=== PATIENT | female | born 1965 | race Caucasian/White ===

== ENCOUNTER 2020-10-29 14:20 | Outpatient (REF) | payer OTHER, SELFPAY ==
--- NOTE | ~2020-10-29 | MM_ITS ---
EXAMINATION: MM DIAGNOSTIC DIGITAL BREAST TOMOSYNTHESIS, BILATERAL US DIAGNOSTIC ULTRASOUND BREAST, RIGHT CLINICAL INFORMATION: Due for yearly. No known family history breast cancer. Also follow-up probable benign mildly complicated cyst 9:00 right breast. The lifetime risk of breast cancer based on the Tyrer-Cuzick Model is 10%. COMPARISON: Mammography: 10/27/2019, 04/25/2019, 10/18/2018, 09/30/2018 (baseline, BI-RADS 0), targeted right breast ultrasound 10/18/2018, 04/25/2019, 10/27/2019. TECHNIQUE: Digital breast tomosynthesis is performed in both the craniocaudal and mediolateral oblique views along with computer-aided detection (CAD). Synthesized 2D images are generated from the tomosynthesis. Ultrasound right breast is targeted to the outer quadrant. Grayscale imaging and color Doppler are performed without and with harmonics. FINDINGS: There are scattered areas of fibroglandular density (ACR BI-RADS breast composition Category b). Parenchymal pattern is similar to prior studies. There is no developing density or interval mass or architectural abnormality. No abnormal calcifications. There is a small stable nodule anterior 11:00 position similar to prior exams. The cyst 9:00 position is not well visualized on mammography. The axilla and skin contours are unremarkable. Ultrasound right breast demonstrates subcentimeter hypoechoic nodule/mildly complicated cyst 9:00 position 9 cm from nipple with fine avascular internal septation. Overall dimensions are approximately 9 x 7 x 4 mm. Original dimensions similar, 9 x 5 mm on ultrasound 10/18/2018. Finding is now considered benign. There is no interval new cystic or solid mass in the targeted area. Results are discussed with the patient at time of visit. MM/MM tomosynthesis diagnostic BI IMPRESSION: 1. No mammographic evidence of malignancy. No significant changes from prior exams. 2. Ultrasound shows stable subcentimeter nodule 9:00 position, similar to prior exams and now considered benign. ASSESSMENT: BI-RADS 2: Benign RECOMMENDATION: Routine annual mammography screening. This patient's information was entered into a reminder system with a target due date for their next mammogram.
== END 2020-10-29 14:21 | disposition home or self-care (01) ==
LOC: HO.MAMMO 14:20
PROVIDERS: PCP Hospitalist; Visit Provider Hospitalist
DX: R92.2 Inconclusive mammogram (principal)
CPT/HCPCS: 76642; 77062; 77066

== ENCOUNTER 2023-09-03 14:14 | Outpatient (AMB) | payer OTHER, SELFPAY ==
--- NOTE | 2023-09-03 14:26 | A.OFFPC_ITS ---
Vital Signs 09/03/23 14:28 Height 5 ft 4 in Weight 207 lb BMI 35.5 BP 118/70 Blood Pressure Location Lt brachial Position Sitting Pulse 65 Pulse Source Pulse Oximeter Pulse Oximetry (%) 97 Oxygen Delivery Method Room Air Intake Visit Reasons: [facility] formerly [facility] Intake Note: Patient is here as a transfer of care from [facility]. Allergies aspirin Allergy (Severe, Verified 09/03/23 14:32) Throat swells up penicillin G Allergy (Intermediate, Verified 09/03/23 14:32) hives, measles size Tobacco use date assessed: 09/03/23 Dental Screening Dental Screen Date: 09/03/23 Did you have a dental visit in the last 12 months?: Yes Did you have a dental problem in the last 6 months where you did not have access to dental care?: No Was dental information given to patient?: Patient has dentist HPI [facility], [facility] HPI Details New patient/Transfer of Care Prior PCP:?SV Last office visit/CPE: Acute issue(s): Est Care PMHx:??Depression,?hypertension, Chronic intermittent neuralgia pain, Plaque Psoriasis SurgHx:R index finger I&D FHx: Dad: Diabetes. Mom: HTN, Dementia. GM: Uterine CA. GF: Lung CA SocHx: Quit cigs 2006. EtOH: 1-2 dr 2-3 x a week. MJ daily. No other drugs PFSH Medical History Abrasion of right index finger with infection Family History Father Diabetes Mother High blood pressure Advanced dementia Paternal Grandfather Lung cancer Maternal Grandmother Uterine cancer Social History (Updated 09/03/23 @ 14:39 by Ella Grace CMA) Household Members: Spouse Housing: House Patient Tobacco Use Status: Former Tobacco user Years Smoked: Quit 2016. e-Cigarette/Vaping Use: Never Used service: Yes Current occupational status: employed Cognitive needs: No Hearing needs: No Vision needs: Yes Questionnaire PHQ-9 Over the last 2 weeks, how often have you been bothered by any of the following problems? 1. Little interest or pleasure in doing things: several days 2. Feeling down, depressed, or hopeless: several days 3. Trouble falling or staying asleep, or sleeping too much: more than half the days 4. Feeling tired or having little energy: several days 5. Poor appetite or overeating: not at all 6. Feeling bad about yourself - or that you are a failure or have let yourself or your family down: several days 7. Trouble concentrating on things, such as reading the newspaper or watching television: not at all 8. Moving or speaking so slowly that other people could have noticed. Or the opposite - being so fidgety or restless that you have been moving around a lot more than usual: not at all 9. Thoughts that you would be better off or of hurting yourself in some way: not at all Total score: 6 Depression Screening Interpretation: Positive Depression Screening Follow-up: Existing condition and In treatment Depression Screening Done: Yes [id number] - PHQ-9 Billing: Yes Source: Developed by Drs. Héctor Aguilar, Amy Reese, Alden Gleason and colleagues, with an educational ann from [employer]. AUDIT C Alcohol Use Questionnaire (AUDIT-C) 1. How often do you have a drink containing alcohol?: 2-3 times a week 2. How many drinks containing alcohol do you have on a typical day when you are drinking?: 1 or 2 3. How often do you have six or more drinks on one occasion?: Never Total Score: 3 SHRUTI-7 AMB Questionnaire SHRUTI-7 Date SHRUTI - 7 assessed: 09/03/23 Feeling nervous, anxious, or on edge: 0 = Not at all Not being able to stop or control worryin = Not at all Worrying too much about different things: 0 = Not at all Trouble relaxin = Not at all Being so restless that it is hard to sit still: 0 = Not at all Becoming easily annoyed or irritable: 0 = Not at all Feeling afraid as if something awful might happen: 0 = Not at all Total SHRUTI-7 score (0-4 normal; 5-9 mild; 10-14 moderate; 15-21 severe): 0 Source: Developed by Drs. Héctor Aguilar, Amy Reese, Alden Gleason and colleagues, with an educational ann from [employer]. SHRUTI-7 Assessment Billing SHRUTI-7 Assessment Tool: SHRUTI-7 Assessment 48631 Review of Systems Const Denies chills, Denies fatigue, Denies fever(s), Denies headache(s) and Denies weakness ENT Denies dizziness and Denies headache(s) Card Denies chest pain, Denies lightheadedness, Denies dyspnea and Denies other (Palpitations) Resp Denies cough, Denies dyspnea, Denies wheezing and Denies other ( shortness of breath) Musc Denies numbness and Denies tingling Neuro Denies dizziness, Denies headache(s), Denies numbness, Denies tingling, Denies paresthesias and Denies weakness Psych Denies anxiety and Denies depression Endo Denies fatigue Aller/Immun Denies wheezing Physical exam (Primary Care) Vital Signs: Last Vital Signs Pulse 65 09/03/23 14:28 BP 118/70 09/03/23 14:28 Pulse Ox 97 09/03/23 14:28 Oxygen Delivery Method Room Air 09/03/23 14:28 BMI result Body Mass Index 35.5 Tobacco/Smoking Status: Tobacco use Status Tobacco use date assessed 09/03/23 09/03/23 14:42 Patient Tobacco Use Status Former Tobacco user 09/03/23 14:42 e-Cigarette/Vaping Use Never Used 09/03/23 14:42 PHQ-9: PHQ-9 Score PHQ-9: Total score 6 09/03/23 14:59 Depression Screening Interpretation: Positive Depression Screening Follow-up: Existing condition and In treatment Const General: no acute distress and well developed Nutritional Appearance: well nourished Orientation/consciousness: patient oriented x3 HENMT Head: Yes normocephalic and Yes atraumatic Eyes General: appearance normal, both eyes and all related structures Pupils: Equal, round and reactive pupils present EOM: EOMs intact bilaterally Resp Effort & Inspection: normal respiratory effort Auscultation: clear to auscultation bilaterally Cardio Rate: regular rate Rhythm: regular rhythm Heart sounds: S1 normal heart sound present, S2 normal heart sound present, no gallops, no murmurs and no rubs Neuro General: patient oriented x3 and gait normal Cranial nerves: Yes Equal, round and reactive pupils present Psych Affect: normal affect Assessment and Plan Assessment & Plan (1) Hypertension, essential: Code(s): I10 - Essential (primary) hypertension Plan: Blood?pressure?is?well?controlled.??Goal?is?less?than?140/90 Continue?current?medication (2) Depression: Code(s): F32.9 - Major depressive disorder, single episode, unspecified Qualifiers: Active/Remission status: in full remission Depression Type: major depressive disorder Major depression recurrence: recurrent Qualified Code(s): F33.42 - Major depressive disorder, recurrent, in full remission Plan: Controlled?with?duloxetine Continue?current?medication (3) Neuralgia: Code(s): M79.2 - Neuralgia and neuritis, unspecified Plan: Well?controlled?with?duloxetine Continue?duloxetine? (4) Cognitive changes: Code(s): R41.89 - Other symptoms and signs involving cognitive functions and awareness Plan: Cognitive?changes?and?a?family?history?of?dementia. Referred?to[facility]?memory?clinic,?neuropsychiatry (5) Family history of dementia: Code(s): Z81.8 - Family history of other mental and behavioral disorders Plan: As?above (6) Laboratory exam ordered as part of routine general medical examination: Code(s): Z00.00 - Encounter for general adult medical examination without abnormal findings Plan: Check?labs Orders: Orders Lipid Panel Today Z00.00 - Encounter for general adult medical examination without abnormal findings Microalbumin, Random (w Creat) Today I10 - Essential (primary) hypertension Comprehensive [place]. Panel Fast Today Z00.00 - Encounter for general adult medical examination without abnormal findings TSH reflex Free T4 Today Z00.00 - Encounter for general adult medical examination without abnormal findings UA and rflx microscopic Today Z00.00 - Encounter for general adult medical examination without abnormal findings Vitamin D 25-OH Total Today E55.9 - Vitamin D deficiency, unspecified Referrals Neuropsychiatry Referral M79.2 - Neuralgia and neuritis, unspecified, R41.89 - Other symptoms and signs involving cognitive functions and awareness, Z81.8 - Family history of other mental and behavioral disorders Medications: Discontinued hydrochlorothiazide Discontinued Reason: Doctor's Order 50 mg PO DAILY 90 days 90 tabs 3RF Coding Level of Care Code Est Pt Level 4 (08835) Diagnoses Hypertension, essential I10 Recurrent major depressive disorder, in full remission F33.42 Active/Remission status: in full remission Depression Type: major depressive disorder Major depression recurrence: recurrent Neuralgia M79.2 Cognitive changes R41.89 Family history of dementia Z81.8 Laboratory exam ordered as part of routine general medical examination Z00.00 Additional Codes SHRUTI-7 Assessment Billing - SHRUTI-7 Assessment Tool: SHRUTI-7 Assessment [id number] ([id number])
[2023-09-03 14:28] VITALS: BP 118/70; PULSE 65; O2SAT 97; BMI 35.5
== END 2023-09-03 15:22 | disposition home or self-care (01) ==
PROVIDERS: PCP Hospitalist; Visit Provider Family Medicine
DX: I10 Essential (primary) hypertension (principal); F33.42 Major depressive disorder, recurrent, in full remission; M79.2 Neuralgia and neuritis, unspecified; R41.89 Other symptoms and signs involving cognitive functions and awareness; Z81.8 Family history of other mental and behavioral disorders
CPT/HCPCS: 99214

== ENCOUNTER 2024-06-02 15:17 | Outpatient (AMB) | payer OTHER, SELFPAY ==
--- NOTE | 2024-06-02 16:16 | A.OFFPC_ITS ---
Vital Signs 06/02/24 16:19 Height 5 ft 4 in Weight 224 lb 4 oz BMI 38.5 BP 132/78 Blood Pressure Location Lt brachial Position Sitting Respiration 14 Pulse 91 Pulse Source Pulse Oximeter Temp 97.8 F Temp Source Oral Pulse Oximetry (%) 97 Oxygen Delivery Method Room Air Intake Visit Reasons: Follow Up / Cancer Screening Intake Note: med refill and lung cancer screening referral for [facility] Allergies aspirin Allergy (Severe, Verified 06/02/24 16:17) Throat swells up penicillin G Allergy (Intermediate, Verified 06/02/24 16:17) hives, measles size Tobacco use date assessed: 09/03/23 Dental Screening Dental Screen Date: 09/03/23 HPI Follow Up / Cancer Screening HPI Details 58 y/o female presents to f/u chronic co nditions. She requests a lung cancer screening at [facility]. No recent labs to review. She is being followed by [place] [facility] for a foot fracture. She has a f/u with them. [facility] Medical History Abrasion of right index finger with infection Family History Father Diabetes Mother High blood pressure Advanced dementia Paternal Grandfather Lung cancer Maternal Grandmother Uterine cancer Social History (Updated 09/03/23 @ 14:39 by Ella Grace CMA) Household Members: Spouse Housing: House Patient Tobacco Use Status: Former Tobacco user Years Smoked: Quit 2016. e-Cigarette/Vaping Use: Never Used service: Yes Current occupational status: employed Cognitive needs: No Hearing needs: No Vision needs: Yes Questionnaire Thrive Questionnaire I am a: Patient What is your living situation today?: I choose not to answer this question Within the past 12 months, did the food you bought not last and you didn't have the money to get more?: I choose not to answer this question Within the past 12 months, did you worry whether your food would run out before you got money to buy more?: I choose not to answer this question Do you have trouble paying for medicines?: I choose not to answer this question Do you have trouble getting transportation to medical appointments?: I choose not to answer this question Do you have trouble paying your heating and electricity bill?: I choose not to answer this question Do you have trouble taking care of your child, family member or friend?: I choose not to answer this question Do you have trouble with day-to-day activities such as bathing, preparing meals, shopping, managing finances, etc.?: I choose not to answer this question Are you currently unemployed and looking for a job?: I choose not to answer this question Are you interested in more education?: I choose not to answer this question Please select the resources that you would like help with: None Currently or been in a relationship where the following occur: I choose not to answer THRIVE Score: 0 AUDIT C Alcohol Use Questionnaire (AUDIT-C) 1. How often do you have a drink containing alcohol?: 4 or more times a week 2. How many drinks containing alcohol do you have on a typical day when you are drinking?: 1 or 2 3. How often do you have six or more drinks on one occasion?: Less than monthly Total Score: 5 SHRUTI-7 AMB Questionnaire SHRUTI-7 Date SHRUTI - 7 assessed: 09/03/23 Feeling nervous, anxious, or on edge: 3 = Nearly every day Not being able to stop or control worryin = Nearly every day Worrying too much about different things: 3 = Nearly every day Trouble relaxin = Nearly every day Being so restless that it is hard to sit still: 1 = Several days Becoming easily annoyed or irritable: 3 = Nearly every day Feeling afraid as if something awful might happen: 3 = Nearly every day Total SHRUTI-7 score (0-4 normal; 5-9 mild; 10-14 moderate; 15-21 severe): 19 Source: Developed by Drs. Héctor Aguilar, Amy Reese, Alden Gleason and colleagues, with an educational ann from [employer]. Review of Systems Const Denies chills, Denies fatigue, Denies fever(s), Denies headache(s) and Denies we akness ENT Denies dizziness and Denies headache(s) Card Denies chest pain, Denies lightheadedness, Denies dyspnea and Denies other (Palpitations) Resp Denies cough, Denies dyspnea, Denies wheezing and Denies other ( shortness of breath) Musc Denies numbness and Denies tingling Neuro Denies dizziness, Denies headache(s), Denies numbness, Denies tingling, Denies paresthesias and Denies weakness Psych Denies anxiety and Denies depression Endo Denies fatigue Aller/Immun Denies wheezing Physical exam (Primary Care) Vital Signs: Last Vital Signs Temp 97.8 F 06/02/24 16:19 Pulse 91 06/02/24 16:19 Resp 14 06/02/24 16:19 BP 132/78 06/02/24 16:19 Pulse Ox 97 06/02/24 16:19 Oxygen Delivery Method Room Air 06/02/24 16:19 BMI result Body Mass Index 38.5 Tobacco/Smoking Status: Tobacco use Status Tobacco use date assessed 09/03/23 06/02/24 16:22 Patient Tobacco Use Status Former Tobacco user 06/02/24 16:22 e-Cigarette/Vaping Use Never Used 06/02/24 16:22 Currently or been in a relationship where the following occur: I choose not to answer Const General: no acute distress and well developed Nutritional Appearance: well nourished Orientation/consciousness: patient oriented x3 HENMT Head: Yes normocephalic and Yes atraumatic Eyes General: appearance normal, both eyes and all related structures Pupils: Equal, round and reactive pupils present EOM: EOMs intact bilaterally Resp Effort & Inspection: normal respiratory effort Auscultation: clear to auscultation bilaterally Cardio Rate: regular rate Rhythm: regular rhythm Heart sounds: S1 normal heart sound present, S2 normal heart sound present, no gallops, no murmurs and no rubs Neuro General: patient oriented x3 and gait normal Cranial nerves: Yes Equal, round and reactive pupils present Psych Affect: normal affect Coding Level of Care Code Est Pt Level 4 (08345) Diagnoses Hypertension, essential I10 Screening for lung cancer Z12.2 Foot fracture S92.909A Recurrent major depressive disorder, in full remission F33.42 Active/Remission status: in full remission Depression Type: major depressive disorder Major depression recurrence: recurrent Assessment & Plan Assessment & Plan (1) Hypertension, essential: Code(s): I10 - Essential (primary) hypertension Category: Medical Plan: Blood?pressure?is?controlled.??Goal?is?less?than?140/90 Continue?lisinopril (2) Screening for lung cancer: Code(s): Z12.2 - Encounter for screening for malignant neoplasm of respiratory organs Category: Medical Plan: Patient?quit?smoking?less?than?15?years?ago. Due?for?low-dose?CT?screen Ordered (3) Foot fracture: Code(s): S92.909A - Unspecified fracture of unspecified foot, initial encounter for closed fracture Category: Medical Plan: Right?foot?fracture?and?followed?by?[facility] (4) Depression: Code(s): F32.9 - Major depressive disorder, single episode, unspecified Category: Medical Qualifiers: Active/Remission status: in full remission Depression Type: major depressive disorder Major depression recurrence: recurrent Qualified Code(s): F33.42 - Major depressive disorder, recurrent, in full remission Plan: She?is?on?duloxetine Refilled Plan Patient?was?quite?frustrated?with?the?length?of?time?she?had?weight?today. Apologized?for?the?time Patient?felt?she?was?never?told?that?she?had?lab?work?ordered.??I?did?explain?th at?it?is?my?policy?at?every?visit?that?I?ordered?labs?to?discuss?thi s?with?each?patient. The?labs?are?still?available?in?waiting.??He?can?get?them?done?at?this?office?or ?at[facility].??She?does?not?need?an?appointment We?discussed?that?I?will?call?her?if? there?is?any?action?required?from?labs.??She?can?call?if?she?has?any?questions. I?have?asked?her?to?follow- up?in?a?few?months?to?evaluate?her?blood?pressure?and?we?can?review?her?lab?work Orders: Orders CT lung screening Today Z12.2 - Encounter for screening for malignant neoplasm of respiratory organs Medications: Refilled duloxetine 60 mg PO DAILY 90 caps 3RF 3 months lisinopril 40 mg PO DAILY 90 tabs 3RF 3 months
[2024-06-02 16:19] VITALS: BP 132/78; PULSE 91; RESP 14; TEMP 36.6; O2SAT 97; BMI 38.5
== END 2024-06-02 16:58 | disposition home or self-care (01) ==
PROVIDERS: PCP Family Medicine; Visit Provider Family Medicine
DX: I10 Essential (primary) hypertension (principal); Z12.2 Encounter for screening for malignant neoplasm of respiratory organs; S92.909A Unspecified fracture of unspecified foot, initial encounter for closed fracture; F33.42 Major depressive disorder, recurrent, in full remission

== ENCOUNTER → 2024-06-02 15:17 | Outpatient (BNVA) | payer OTHER, SELFPAY | PROVIDERS: PCP Family Medicine; Visit Provider Family Medicine | DX: I10 Essential (primary) hypertension (principal); F33.42 Major depressive disorder, recurrent, in full remission; S92.901D Unspecified fracture of right foot, subsequent encounter for fracture with routine healing | CPT/HCPCS: 99212 ==

== ENCOUNTER 2024-10-28 10:50 | Outpatient (AMB) | payer OTHER, SELFPAY ==
--- NOTE | 2024-10-28 08:00 | MHC.OFFVIS ---
Intake Visit Reasons: Former Smoker Allergies aspirin Allergy (Severe, Verified 06/02/24 16:17) Throat swells up penicillin G Allergy (Intermediate, Verified 06/02/24 16:17) hives, measles size HPI HPI Former Smoker: Details: Initial visit for this 59yo former smoker with a 40PYH. Patient started smoking at age 15 for 29 years at 1-2ppd. She quit in 01/13/2010. . Reports occasional/rare marijuana use. Denies second hand smoke exposure. Denies exposure to chemicals or substances like asbestos. . Reports history of lung cancer. Paternal Grandfather. Denies personal history of cancers. Denies chest CT in last year. . Denies recent travel outside the [place]. Denies recent respiratory illness or recent hospitalization for respiratory issues. Reports history of testing positive for COVID. Admits receiving COVID Vaccine. . Denies fever, chills, new/worsening cough, hemoptysis, hoarseness or dysphagia. Denies significant chest pain, significant dyspnea or unintentional weight loss. Patient Lung Cancer Screening Questionnaire reviewed with patient by provider. . Shared Decision Making Completed. Patient meets criteria. Discussed in detail with patient, the risk vs benefit of LDCT screening. Patient consents to proceed with scan. Discussed andencouraged continued smoking cessation. [facility] Medical History (Updated 10/28/24 @ 11:10 by Jennifer Sanchez PA-C) Depression Hypertension, essential Personal history of nicotine dependence Abrasion of right index finger with infection Surgical History (Updated 10/28/24 @ 11:04 by Jennifer Sanchez PA-C) History of hand surgery Family History (Reviewed 09/03/23 @ 14:37 by Ella Grace [facility]) Father Diabetes Mother High blood pressure Advanced dementia Paternal Grandfather Lung cancer Maternal Grandmother Uterine cancer Social History (Updated 10/28/24 @ 11:15 by Jennifer Sanchez PA-C) Household Members: Spouse Housing: House Alcohol intake: current Alcohol intake frequency: 0-2 drinks per day Alcohol type: wine Patient Tobacco Use Status: Former Tobacco user Years Smoked: (onset 15yo, 1-2ppd x 29yrs, 40pyh - quit 01/13/10) e-Cigarette/Vaping Use: Never Used service: Yes Current occupational status: employed Cognitive needs: No Hearing needs: No Vision needs: Yes Assessment & Plan Assessment & Plan (1) Personal history of nicotine dependence: Comment: (onset 15yo, 1-2ppd x 29yrs, 40pyh - quit 01/13/10) Code(s): Z87.891 - Personal history of nicotine dependence Category: Medical Plan: - SDM visit completed today in office. - Patient meets criteria for LDCT for lung cancer screening purposes and is asymptomatic. - Smoking cessation counseling offered. Patients can always call [phone]. - Will arrange for a LDCT scan of the chest for screening purposes at [facility]. - Risks, benefits, and alternatives were discussed in detail and the patient agrees to proceed. - Risks discussed include but are not limited to: radiation exposure, anxiety during testing and while awaiting results, false negatives, false positives and possibility of additional intervention such as further imaging or surgical procedures for benign disease. - Benefits are obviously detection of lung cancer at an early stage which can lead to improved outcomes. - Discussed the importance of screening program compliance with adherence to yearly LDCT scan as scheduled - or sooner interval scans for personalized screening regimen. - Discussed follow up plan. Our office will send a letter discussing results and if needed set up phone call and office visit based on CT findings. - Patient educated on results categorization and the management decisions for suspicious findings potentially found on the screening LDCT scan. Any patient with a Lung RADS score of 3 or 4 will be reviewed by a multidisciplinary team at [facility] to form a plan of action in regards to scan findings. - If further work up is warranted for a suspicious lung finding this will be followed by the Lung Cancer Screening program in conjunction with the Thoracic Surgery Department at [facility]. - A copy of the office note and LDCT will be sent to the patient's PCP - as well as documentation on any associated further plans of care. - Incidental findings on LDCT are the PCP's responsibility. These findings are indicated with an S finding on the LDCT Assessment. A note discussing the findings will be sent to the PCP who is then responsible for further management. - All questions answered.? Plan Patient is overdue for labwork. She had tried to go today as she had appointment in building today but old order . She also reports last [employer] OFFICER exam was in 1988. She was given number for [place] [facility] office. She is encouraged to set up annual PCP exam and annual [employer] POLICE OFFICER exam. Coding Level of Care Code Lung Cancer Screening G0296 Diagnoses Personal history of nicotine dependence Z87.891
== END 2024-10-28 13:18 | disposition home or self-care (01) ==
LOC: HO.HPS 10:51
PROVIDERS: PCP Family Medicine; Referring Provider Family Medicine; Visit Provider Physician Assistant Medical
DX: Z87.891 Personal history of nicotine dependence (principal)
CPT/HCPCS: G0296

== ENCOUNTER 2024-10-28 11:15 | Outpatient (REF) | payer OTHER, SELFPAY ==
--- NOTE | ~2024-10-28 | CT_ITS ---
CLINICAL HISTORY: Z87.891 - Personal history of nicotine dependence CT lung cancer screening (LDCT) Comparison: None Technique: Axial CT images of the chest using low-dose technique. Referring provider counseled the patient on shared decision-making for LDCT screening. Additional counseling was provided on smoking cessation. Effective radiation dose total: DLP 42.9 mGycm, CTDIvol 1.4 mGy. Findings: There are multiple tiny pulmonary nodules, for example a 4 mm right lower lobe nodule on image 57 and a 4 mm left upper lobe nodule on image 23. No significant emphysematous changes. Minimal apical scarring. No consolidation or pleural effusion. Coronary artery calcifications: Moderate Limited upper abdomen: Unremarkable Other: None Impression: Category 2: Benign appearance or behavior. Continue annual screening. Hashtag #[id number] ## Category 1: Normal; continue annual screening Category 2: Benign appearance or behavior, continue annual screening Category 3: Probably benign, [address] recommended Category 4A: Suspicious, [address] recommended; may consider PET/CT Category 4B: Suspicious, Additional diagnostics and/or tissue sampling recommended Category 4X: Suspicious, Additional diagnostics and/or tissue sampling recommended Category 0: Recalls (incomplete screen due to Incomplete coverage, Noise, Respiratory motion, Expiration, Obscured by acute abnormality) This document has been electronically signed by: Abby Kenyon MD on 10/28/2024 15:55:43
== END 2024-10-28 11:16 | disposition home or self-care (01) ==
LOC: HO.CT 11:15
PROVIDERS: PCP Family Medicine; Visit Provider Physician Assistant Medical
DX: Z12.2 Encounter for screening for malignant neoplasm of respiratory organs (principal); Z87.891 Personal history of nicotine dependence
CPT/HCPCS: 71271; G0296

== ENCOUNTER → 2024-10-28 11:19 | Outpatient (BNV) | payer OTHER, SELFPAY | PROVIDERS: PCP Family Medicine; Visit Provider Radiology Diagnostic Radiology | DX: Z12.2 Encounter for screening for malignant neoplasm of respiratory organs (principal); Z87.891 Personal history of nicotine dependence | CPT/HCPCS: 71271 ==